=== PATIENT | female | born 1990 | race Caucasian/White ===

== ENCOUNTER 2022-09-02 15:08 | Emergency (ER) | payer SELFPAY ==
[2022-09-02 15:31] VITALS: BP 136/80; PULSE 110; RESP 16; TEMP 36.8; O2SAT 100
[2022-09-02 16:04] LABS: Add Urine Microscopic? YES; Appearance Urine Clear (Clear); Bilirubin Urine Negative (Negative); Blood Urine Negative (Negative); Color Urine Light Yellow (Yellow); Glucose Urine UA Negative (Negative); Ketones Urine Negative (Negative); Leukocyte Esterase Ur 1+ LEU/UL (Negative); Nitrate Urine Negative (Negative); Protein Urine Negative (Negative); Urobilinogen Urine 0.2 mg/dL (<2.0)
[2022-09-02 16:07] LABS: Mucus Urine Rare /lpf; Squamous Epithelial Cell Urine Many /hpf (Few)
--- NOTE | 2022-09-02 16:21 | PC.NURSE ---
patient left without being seen. states she got a call back from her surgeon and was told that she can go home.
== END 2022-09-02 16:32 | disposition left against medical advice (07) ==
LOC: ANHED 16:31
PROVIDERS: Emergency Provider Emergency Medicine
DX: T81.9XXA Unspecified complication of procedure, initial encounter (principal)
CPT/HCPCS: 81001; 87086; 99199